=== PATIENT | male | born 2000 | race Two or more races ===

== ENCOUNTER 2020-01-15 15:21 | Emergency (ER) | payer OTHER, SELFPAY ==
[2020-01-15 16:24] VITALS: BP 141/82; PULSE 70; RESP 18; TEMP 36.1; O2SAT 98; BMI 27.3
--- NOTE | 2020-01-15 16:30 | ED.MEDCLEAR ---
HPI - Medical Clearance General Chief complaint: Medical Clearance <Evan Topete NP - Last Filed: 01/15/20 16:37> Stated complaint: MEDICAL CLEARANCE <Evan Topete NP - Last Filed: 01/15/20 16:37> Time Seen by Provider: 01/15/20 16:28 <Evan Topete NP - Last Filed: 01/15/20 16:37> Source: patient <Evan Topete NP - Last Filed: 01/15/20 16:37> Mode of arrival: ambulatory <Evan Topete NP - Last Filed: 01/15/20 16:37> Limitations: no limitations <Evan Topete NP - Last Filed: 01/15/20 16:37> History of Present Illness HPI Narrative: Otherwise healthy 19-year-old male presenting today seeking work note/excuse. States he has occasional upset stomach this morning he had a bout of upset stomach which led him to miss work and he is worried that he may have repercussions from work and came to emergency room for a work note. He offers no complaints at this time. No abdominal pain, nausea vomiting diarrhea. No recent travel or sick contacts. No URI symptoms. No COVID-19 symptoms. <Evan Topete NP - Last Filed: 01/15/20 16:37> complaint: medical clearance requested <Evan Topete NP - Last Filed: 01/15/20 16:37> Onset (ago): day(s) <Evan Topete NP - Last Filed: 01/15/20 16:37> Place: home <Evan Topete NP - Last Filed: 01/15/20 16:37> Associated Symptoms: denies other symptoms <Evan Topete NP - Last Filed: 01/15/20 16:37> Related Information Allergies/Adverse reactions: Allergies Allergy/AdvReac Type Severity Reaction Status Date / Time beeswax [BEESWAX] Allergy Unknown Itching Verified 01/15/20 16:31 shrimp [SHRIMP] Allergy Unknown SWOLLEN Verified 01/15/20 16:31 LIPS <Evan Topete NP - Last Filed: 01/15/20 16:37> Review of Systems Review of Systems: Yes all other systems are reviewed and are negative <Evan Topete NP - Last Filed: 01/15/20 16:37> [facility] Past Medical History Attestation statement: The following information was validated with the patient. <Evan MirandaKORTNEY amado - Last Filed: 01/15/20 16:37> Medical History: Medical History (Updated 01/16/20 @ 00:01 by Beau Sarkar) No known health problems <Evanjean claude Topete NP - Last Filed: 01/15/20 16:37> Surgical History: Surgical History (Updated 01/15/20 @ 16:27 by Jennifer De La Fuente) No history of previous surgery <Evanjean claude Topete NP - Last Filed: 01/15/20 16:37> Social History Social History: Social History Alcohol intake: current Alcohol intake frequency: a few times a week Smoking Status: Former smoker Smoked in Last 30 Days: No Use of substances other than those prescribed or required for medical reasons: No Advance Directives: No Advance Directives Information Provided: No <Evanjean claude Topete NP - Last Filed: 01/15/20 16:37> Physical Exam Vital Signs and I&O and Narrative: Vital Signs and I&O: Vital Signs Temp 97.0 F 01/15/20 16:24 Pulse 70 01/15/20 16:24 Resp 18 01/15/20 16:24 BP 141/82 H 01/15/20 16:24 Pulse Ox 98 01/15/20 16:24 Intake & Output 01/15/20 01/15/20 01/16/20 06:59 18:59 06:59 Weight 83.915 kg Body Mass Index 27.3 <Evan MirandaKORTNEY amado - Last Filed: 01/15/20 16:37> Vital Signs and I&O: Vital Signs Temp 97.0 F 01/15/20 16:24 Pulse 70 01/15/20 16:24 Resp 18 01/15/20 16:24 BP 141/82 H 01/15/20 16:24 Pulse Ox 98 01/15/20 16:24 Intake & Output 01/15/20 01/15/20 01/16/20 06:59 18:59 06:59 Weight 83.915 kg Body Mass Index 27.3 <Edvin Olivas DO - Last Filed: 01/16/20 02:01> Const: General: cooperative and healthy appearing; No acute distress or intoxicated appearing <[facility] Topete - Last Filed: 01/15/20 16:37> Nutritional Appearance: average body habitus <[facility] Topete [facility] Last Filed: 01/15/20 16:37> Orientation/consciousness: patient oriented x3 <[facility] Topete [facility] Last Filed: 01/15/20 16:37> HENMT: Head: Yes normal to inspection <[facility] Topete [facility] Last Filed: 01/15/20 16:37> Ears: hearing grossly normal bilaterally [facility] Last Filed: 01/15/20 16:37> Eyes: General: appearance normal, both eyes and all related structures <[facility] Topete, [facility] Last Filed: 01/15/20 16:37> Visual Araiza: normal visual araiza by confrontation <[facility] Topete [facility] Last Filed: 01/15/20 16:37> Neck: Neck: Yes normal visual inspection, No positive Brudzinski's sign, No positive Kernig's sign and No tender <[facility] Topete [facility] Last Filed: 01/15/20 16:37> Thyroid: Thyroid normal <[facility] Last Filed: 01/15/20 16:37> Chest: Chest palpation & inspection: normal inspection of the chest <[facility] Topete [facility] Last Filed: 01/15/20 16:37> Resp: Effort & Inspection: normal respiratory effort <[facility] Last Filed: 01/15/20 16:37> Cardio: Jugular venous distension: no JVD <[facility] Last Filed: 01/15/20 16:37> GI: Inspection: Yes normal to inspection <[facility] Last Filed: 01/15/20 16:37> Percussion: Yes normal to percussion <[facility] - Last Filed: 01/15/20 16:37> Auscultation: normal bowel sounds <[facility] Last Filed: 01/15/20 16:37> : General: Yes no CVA tenderness <[facility] - Last Filed: 01/15/20 16:37> Back/Spine/Pelvis: Back: no CVA tenderness <Evan Topete NP - Last Filed: 01/15/20 16:37> Skin: General skin exam: no rashes or lesions noted <Evan Topete NP - Last Filed: 01/15/20 16:37> Neuro: General: patient oriented x3 <Evan Topete NP - Last Filed: 01/15/20 16:37> Extrem: General: Yes normal to inspection <Evan Topete NP - Last Filed: 01/15/20 16:37> Course Course Hospital Course: Stable / po intake no complaints. <Evan Topete NP - Last Filed: 01/15/20 16:37> Discharge Plan Discharge Clinical Impression: Abdominal pain <Evan Topete NP - Last Filed: 01/15/20 16:37> Patient Disposition: Home, Self-Care <Evan Topete NP - Last Filed: 01/15/20 16:37> Instructions: Acute Nausea and Vomiting (ED) <Evan Topete NP - Last Filed: 01/15/20 16:37> Stand Alone Forms: Work/School Release <Evan Topete NP - Last Filed: 01/15/20 16:37> Interventions: ED Discharge Assessment Last Done: 01/15/20 17:57 <Evan Topete NP - Last Filed: 01/15/20 16:37> Discharge Date/Time: 01/15/20 17:57 <Evan Topete NP - Last Filed: 01/15/20 16:37>
== END 2020-01-15 17:57 | disposition home or self-care (01) ==
LOC: HO.ED 16:38
PROVIDERS: Emergency Provider Emergency Medicine; PCP Pediatrics
DX: Z02.2 Encounter for examination for admission to residential institution (principal); R10.9 Unspecified abdominal pain
CPT/HCPCS: 99282; 99283

== ENCOUNTER 2020-01-30 14:23 | Emergency (ER) | payer OTHER, SELFPAY ==
[2020-01-30 14:50] VITALS: BP 119/76; PULSE 75; RESP 18; TEMP 37.1; O2SAT 99; BMI 27.4
--- NOTE | 2020-01-30 15:04 | ED_ITS ---
HPI - Abdominal Pain General Chief Complaint: Abdominal Pain Stated Complaint: abd pain Time Seen by Provider: 01/30/20 15:04 Source: patient Mode of arrival: ambulatory Limitations: no limitations History of Present Illness HPI narrative: Patient is a 19-year-old male with no significant past medical history who presents complaining of on and off diarrhea, bloating, gas and constipation for years. also has some nausea intermittently with the diarrhea. States his mom has IBS and he thinks that is why he has as well. Denies any bloody or black stools, denies fevers. denies it occurring after he eats a spe cific food or spicy foods. Denies taking any antibiotics recently or regularly. Denies any foreign travel recently. MD elicited complaint: abdominal pain Onset (ago): year(s) Pain Consistency: intermittent Location: RLQ and LLQ Severity: mild Quality: cramping and dull Radiation: none Exacerbating factors: nothing Relieving factors: nothing Related Data Allergies Allergy/AdvReac Type Severity Reaction Status Date / Time shrimp [SHRIMP] Allergy Unknown SWOLLEN Verified 01/15/20 16:31 LIPS bee pollen [bee stings] Allergy Itching Verified 01/30/20 14:52 Review of Systems Review of Systems Constitutional: No Weight loss, No Fever, No Chills, No Night Sweats, No Fatigue, No Malaise ENT/Mouth: No Hearing loss, No Ear Pain, No Nasal Congestion, No Sinus Pain, No Hoarseness, No sore throat, No Rhinorrhea, No Swallowing Difficulty Eyes: No Eye Pain, No Swelling, No Redness, No Foreign Body, No Discharge, No Vision Changes Cardiovascular: No Chest Pain, No SOB, No Dyspnea on Exertion, No Orthopnea, No Edema, No Palpitations Respiratory: No Cough, No Sputum, No Wheezing, No Smoke Exposure, No Dyspnea Gastrointestinal: Genitourinary: no irregular bleeding, No Dysuria, No Urinary Frequency, No Hematuria, No Urinary Incontinence, No Urgency, No Flank Pain, No Urinary Flow Changes, No Hesitancy Musculoskeletal: No joint pain, No Myalgias, No Joint Swelling Skin: No Skin Lesions, No rash Neuro: No Weakness, No Numbness, No Paresthesias, No Loss of Consciousness, No Dizziness, No Headache Psych: No Anxiety/Panic, No Depression, No SI/HI/AH/VH, No Social Issues, Heme/Lymph: No Bruising, No Bleeding,No Lymphadenopathy Endocrine: No Polyuria, No Polydipsia, No Temperature Intolerance Yes all other systems are reviewed and are negative Physical Exam Vital Signs: Vital Signs: Vital Signs Temp Pulse Resp BP Pulse Ox 01/30/20 14:50 98.7 F 75 18 119/76 99 Body Mass Index 27.4 Const: General: cooperative, healthy appearing, comfortable, no acute distress and well developed Nutritional Appearance: average body habitus and well nourished Orientation/consciousness: patient oriented x3 Limitations: no limitations HENMT: Head: Yes normal to inspection Eyes: General: appearance normal, both eyes and all related structures Neck: Neck: Yes normal visual inspection and Yes full ROM Resp: Effort & Inspection: normal respiratory effort and able to speak in complete sentences Auscultation: clear to auscultation bilaterally Cardio: Rate: regular rate Rhythm: regular rhythm Heart sounds: no gallops, no murmurs and no rubs GI: Inspection: Yes normal to inspection Palpation (GI): Soft to palpation, nontender, no guarding and not rigid Auscultation: normal bowel sounds Skin: General skin exam: no rashes or lesions noted Neuro: General: patient oriented x3 Extrem: General: Yes normal to inspection Psych: Appearance: grossly normal and well kempt Course Course Course Narrative: Patient is a 19-year-old male with no significant past medical history who comes in complaining of years of alternating nausea diarrhea and constipation, denies any concerning symptoms acutely. Vital signs are stable. patient believes he has IBS as his mother does but has never been formally ev aluated. agreed since he is very healthy and stable to GI follow-up as outpatient. No labs or imaging are necessary today as he is not acutely ill. MDM - Abdominal Pain MDM Narrative Medical decision making narrative: Patient has no acute concerning symptoms, refer to GI as outpatient. Patient understands and agrees with plan. Medical Records Attestation: I reviewed the patient's medical records. Discharge Plan Discharge Clinical Impression: Abdominal pain Qualifiers: Abdominal location: lower abdomen, unspecified Qualified Code(s): R10.30 - Lower abdominal pain, unspecified Patient Disposition: Home, Self-Care Referrals: Alex Tripp MD [Physician] - 2 days PMF Past Medical History Attestation statement: The following information was validated with the patient. Source: nursing notes reviewed Medical History Asthma No known health problems Surgical History No history of previous surgery Family History Family History (Updated 01/30/20 @ 15:08 by ROLO Millard) Mother IBS (irritable bowel syndrome) Social History Social History Alcohol intake: unknown Smoking Status: Unknown if ever smoked Use of substances other than those prescribed or required for medical reasons: No Advance Directives: No Advance Directives Information Provided: Yes
== END 2020-01-30 15:35 | disposition home or self-care (01) ==
PROVIDERS: Emergency Provider Emergency Medicine; PCP Pediatrics
DX: R10.30 Lower abdominal pain, unspecified (principal); R19.7 Diarrhea, unspecified
CPT/HCPCS: 99283; 99284

== ENCOUNTER 2020-09-21 06:16 | Emergency (ER) | payer OTHER, SELFPAY ==
--- NOTE | ~2020-09-21 | CT_ITS ---
EXAMINATION: CT ABDOMEN AND PELVIS WITH CONTRAST CLINICAL INFORMATION: Abdominal pain. Left lower quadrant diarrhea. COMPARISON: None TECHNIQUE: Multidetector volumetric images were obtained from the superior aspect of the liver through the pubic symphysis following administration 85 mL of Omnipaque 350 intravenous contrast. Sagittal and coronal reformatted images were obtained on the technologist's workstation. Oral contrast: No This CT examination was performed using dose optimization techniques as appropriate, variously including the following: *Automated exposure control *Adjustment of mA and/or kV according to patient size (this includes techniques or standardized protocols for targeted exams where dose is matched to indication/reason for exam; i.e. extremities or head) *Use of iterative reconstruction technique DLP: 606 mGy-cm FINDINGS: LUNG BASES: The visualized lung bases are unremarkable. LIVER, GALLBLADDER, AND BILIARY TREE: The liver is normal in size, shape, and attenuation. No focal hepatic lesion or biliary ductal dilatation is present. The gallbladder is unremarkable with no evidence of radiopaque gallstones, gallbladder wall thickening, or obvious pericholecystic inflammatory changes. PANCREAS: Unremarkable. SPLEEN: Unremarkable. ADRENAL GLANDS: Unremarkable. KIDNEYS AND URETERS: The kidneys are normal in size, shape, and attenuation. No hydronephrosis, hydroureter, or calculi seen. No perinephric stranding. BLADDER: The bladder is distended and appears unremarkable. GASTROINTESTINAL TRACT: The small and large bowel are unremarkable. The appendix is unremarkable. ABDOMINAL WALL: No significant hernia is appreciated. LYMPH NODES: Normal. VASCULAR: Unremarkable. PELVIC VISCERA: There is no free fluid or free air. OSSEOUS STRUCTURES: Unremarkable. CT/CT abdomen pelvis w con IMPRESSION: No acute intra-abdominal process seen. Distended urinary bladder.
[2020-09-21 06:54] VITALS: BP 117/57; PULSE 64; RESP 15; TEMP 36.6; O2SAT 98; BMI 27.3
--- NOTE | 2020-09-21 07:01 | ED.ABDPAIN ---
HPI - Abdominal Pain General Chief Complaint: Abdominal Pain Stated Complaint: Abd pain Time Seen by Provider: 09/21/20 07:00 Source: patient Mode of arrival: ambulatory Limitations: no limitations History of Present Illness HPI narrative: 20 yo male otherwise healthy with 2 weeks of lower abdominal pain and diarrhea fam hx of IBS MD elicited complaint: abdominal pain Pertinent past history: constipation Onset (ago): week(s) (2) Pain Consistency: intermittent Location: LLQ Severity: moderate Quality: cramping Migration to: no migration Exacerbating factors: nothing Relieving factors: nothing Associated symptoms: denies other symptoms Related Data Previous Rx's Medication Instructions Recorded dicyclomine 20 mg PO TID PRN #30 tab 09/21/20 Allergies Allergy/AdvReac Type Severity Reaction Status Date / Time shrimp [SHRIMP] Allergy Unknown SWOLLEN Verified 09/21/20 06:58 LIPS bee pollen [bee stings] Allergy Itching Verified 09/21/20 06:58 Review of Systems Review of Systems Constitutional : No Weight loss, No Fever, No Chills ENT/Mouth : No sore throat, No Rhinorrhea Eyes: No Swelling, No Redness Cardiovascular : No Chest Pain, No SOB, NoEdema Respiratory : No Cough, No Sputum, No Wheezing Gastrointestinal : no Nausea, no Vomiting, positive Diarrhea, positive abdominal Pain, No Hematochezia, No Melena Genitourinary : No Dysuria, No Urinary Frequency, No Hematuria, No Urgency Musculoskeletal : No joint pain, No Myalgias, No Joint Swelling Skin : No Skin Lesions, No rash Neuro : No Weakness, No Numbness, No Dizziness, No Headache Psych : No Anxiety/Panic, No Depression Heme/Lymph: No Bruising, No Lymphadenopathy Endocrine : No Polyuria, No Polydipsia All other systems reviewed and are negative. Physical Exam Vital Signs: Vital Signs: Last Vital Signs Temp 98 F 09/21/20 06:54 Pulse 64 09/21/20 06:54 Resp 15 09/21/20 06:54 BP 117/57 L 09/21/20 06:54 Pulse Ox 98 09/21/20 06:54 Body Mass Index 27.3 Appearance: Alert. Oriented X3. No acute distress. Eyes: Pupils equal, round and reactive to light. ENT: Pharynx normal. Neck: Normal inspection. Neck supple. CVS: Normal heart rate and rhythm. Pulses normal. Respiratory: No respiratory distress. Breath sounds normal. Abdomen: Soft and moderate LLQ ttp no rebound or guarding. Skin: Skin warm and dry. Normal skin color. Normal skin turgor. Extremities: No lower extremity edema. No calf ttp Neuro: Oriented X 3. No motor deficit. No sensory deficit. Course Course Course Narrative: no issues urinating at this time MDM - Abdominal Pain MDM Narrative Medical decision making narrative: 20 yo male with no sig PMH here with LLQ pain x 2 weeks with diarrhea - no recent antibiotic use, at this time will need labs, CT scan for diverticulitis/colitis, dispo per results and findings. Differential Diagnosis Differential diagnosis: Likely abdominal pain and diverticulitis Lab Data Result diagrams: 09/21/20 07:24 09/21/20 07:24 Labs: Lab Results 09/21/20 09/21/20 09/21/20 Range/Units 07:24 07:24 07:24 WBC 5.9 (4.8-10.8) X10*3/uL RBC 4.82 (4.60-5.80) X10*6/uL Hgb 14.3 (14.0-18.0) g/dl Hct 43.5 (42-52) % MCV 90.2 (80-98) fL MCH 29.7 (27.0-33.0) pg MCHC 32.9 (31.0-36.0) g/dl RDW 13.2 (11.0-16.0) % Plt Count 226 (160-400) X10*3/uL MPV 10.6 (9.4-12.4) fL Immature Gran % (Auto) 0.5 H (0.0-0.4) % Neut % (Auto) 60.2 (45-73) % Lymph % (Auto) 29.8 (20-40) % [place] % (Auto) 7.5 (2-11) % Eos % (Auto) 1.7 (0-4) % Baso % (Auto) 0.3 (0-2) % Lymph # (Auto) 1.8 (1.2-4.9) X10*3/uL [place] # (Auto) 0.4 (0.1-1.2) X10*3/uL Eos # (Auto) 0.1 (0.0-0.4) X10*3/uL Baso # (Auto) 0.0 (0.0-0.2) X10*3/uL Abs Immat Gran (auto) 0.03 (0.00-0.03) X10*3/uL Absolute Neuts (auto) 3.6 (2.0-8.3) X10*3/uL Absolute Nucleated RBC 0.000 (0.0-0.012) X10*3/uL Nucleated RBC % (auto) 0.0 (0.0-0.2) /100WBC Hold Blue Top SEE NOTE Sodium 139 (135-145) mmol/L Potassium 4.6 (3.3-5.1) mmol/L Chloride 105 (96-108) mmol/L Carbon Dioxide 29 (22-29) mmol/L Anion Gap 10 L (12-20) BUN 12 (9-16) mg/dL Creatinine 0.90 (0.5-1.4) mg/dL Estim Creat Clear Calc 126.6 Estimated GFR > 60 Random Glucose 98 (60-115) mg/dL Calcium 9.7 (8.4-10.2) mg/dL Magnesium (1.6-2.6) mg/dL Total Bilirubin (0.0-1.0) mg/dL Direct Bilirubin (0.0-0.5) mg/dL AST (5-37) U/L ALT (0-40) U/L Alkaline Phosphatase (39-117) U/L Total Protein (6.5-8.0) g/dL Albumin (3.5-5.0) g/dL Lipase (8-78) U/L 09/21/20 Range/Units 07:24 WBC (4.8-10.8) X10*3/uL RBC (4.60-5.80) X10*6/uL Hgb (14.0-18.0) g/dl Hct (42-52) % MCV (80-98) fL MCH (27.0-33.0) pg MCHC (31.0-36.0) g/dl RDW (11.0-16.0) % Plt Count (160-400) X10*3/uL MPV (9.4-12.4) fL Immature Gran % (Auto) (0.0-0.4) % Neut % (Auto) (45-73) % Lymph % (Auto) (20-40) % [place] % (Auto) (2-11) % Eos % (Auto) (0-4) % Baso % (Auto) (0-2) % Lymph # (Auto) (1.2-4.9) X10*3/uL [place] # (Auto) (0.1-1.2) X10*3/uL Eos # (Auto) (0.0-0.4) X10*3/uL Baso # (Auto) (0.0-0.2) X10*3/uL Abs Immat Gran (auto) (0.00-0.03) X10*3/uL Absolute Neuts (auto) (2.0-8.3) X10*3/uL Absolute Nucleated RBC (0.0-0.012) X10*3/uL Nucleated RBC % (auto) (0.0-0.2) /100WBC Hold Blue Top Sodium (135-145) mmol/L Potassium (3.3-5.1) mmol/L Chloride (96-108) mmol/L Carbon Dioxide (22-29) mmol/L Anion Gap (12-20) BUN (9-16) mg/dL Creatinine (0.5-1.4) mg/dL Estim Creat Clear Calc Estimated GFR Random Glucose (60-115) mg/dL Calcium (8.4-10.2) mg/dL Magnesium 2.1 (1.6-2.6) mg/dL Total Bilirubin 1.3 H (0.0-1.0) mg/dL Direct Bilirubin 0.5 (0.0-0.5) mg/dL AST 22 (5-37) U/L ALT 25 (0-40) U/L Alkaline Phosphatase 78 (39-117) U/L Total Protein 7.4 (6.5-8.0) g/dL Albumin 4.5 (3.5-5.0) g/dL Lipase 28 (8-78) U/L Discharge Plan Discharge Clinical Impression: Abdominal pain Patient Disposition: Home, Self-Care Instructions: Irritable Bowel Syndrome (ED), Abdominal Pain (ED) Additional Instructions: return to ED for any worsening symptoms or concerns Prescriptions: New dicyclomine 20 mg tablet 20 mg PO TID PRN (Reason: abdominal discomfort) Qty: 30 RF: 0 Referrals: Garrison Rod [Physician] - 1 week Stand Alone Forms: Work/School Release [facility] Past Medical History Attestation statement: The following information was validated with the patient. Medical History Asthma No known health problems Surgical History No history of previous surgery Family History Family History (Updated 01/30/20 @ 15:08 by Selena Choi PA-C) Mother IBS (irritable bowel syndrome) Social History Social History (Updated 09/21/20 @ 07:19 by Mya Suh DO) Alcohol intake: unknown Patient Tobacco Use Status: Never used Tobacco Advance Directives: No Advance Directives Information Provided: No
[2020-09-21] MEDS: 0.9 % Sodium Chloride 1,000 ML 999 ML IVCONT (07:25)
[2020-09-21 07:29] LABS: MANUAL DIFF FLAG NO
[2020-09-21 07:31] LABS: Basophils Percent Auto 0.3 % (0-2); Eosinophils Absolute Auto 0.1 X10*3/uL (0.0-0.4); Eosinophils Percent Auto 1.7 % (0-4); Hematocrit 43.5 % (42-52); Hemoglobin 14.3 g/dl (14.0-18.0); Imm Gran Abs Auto 0.03 X10*3/uL (0.00-0.03); Imm Gran Pct Auto 0.5 % (0.0-0.4); Lymphocytes Absolute Auto 1.8 X10*3/uL (1.2-4.9); Lymphocytes Percent Auto 29.8 % (20-40); Mean Corpuscular HGB Conc 32.9 g/dl (31.0-36.0); Mean Corpuscular Hemoglobin 29.7 pg (27.0-33.0); Mean Corpuscular Volume 90.2 fL (80-98); Mean Platelet Volume 10.6 fL (9.4-12.4); Monocytes Absolute Auto 0.4 X10*3/uL (0.1-1.2); Monocytes Percent Auto 7.5 % (2-11); Neutrophils Absolute Auto 3.6 X10*3/uL (2.0-8.3); Neutrophils Percent Auto 60.2 % (45-73); Platelet Count 226 X10*3/uL (160-400); Red Blood Count 4.82 X10*6/uL (4.60-5.80); Red Cell Distribution Width 13.2 % (11.0-16.0); White Blood Count 5.9 X10*3/uL (4.8-10.8)
[2020-09-21 08:17] LABS: Anion Gap 10 (12-20); Blood Urea Nitrogen 12 mg/dL (9-16); Calcium 9.7 mg/dL (8.4-10.2); Carbon Dioxide 29 mmol/L (22-29); Chloride 105 mmol/L (96-108); Creatinine Clr Calc Pharmacy 126.6; Estimated Glomerular Filt Rate > 60; Glucose Random 98 mg/dL (60-115); Potassium 4.6 mmol/L (3.3-5.1); Sodium 139 mmol/L (135-145)
[2020-09-21 08:21] LABS: Alanine Aminotransferase 25 U/L (0-40); Albumin Level 4.5 g/dL (3.5-5.0); Alkaline Phosphatase 78 U/L (39-117); Aspartate Amino Transferase 22 U/L (5-37); Bilirubin Direct 0.5 mg/dL (0.0-0.5); Bilirubin Total 1.3 mg/dL (0.0-1.0); Lipase 28 U/L (8-78); Magnesium 2.1 mg/dL (1.6-2.6); Total Protein 7.4 g/dL (6.5-8.0)
[2020-09-21] MEDS: iohexoL 350 MG/ML 100 ML INFUS..BTL IV (08:59)
== END 2020-09-21 09:49 | disposition home or self-care (01) ==
PROVIDERS: Emergency Provider Emergency Medicine
DX: R10.30 Lower abdominal pain, unspecified (principal); K58.0 Irritable bowel syndrome with diarrhea
CPT/HCPCS: 36415; 74177; 80048; 80076; 83690; 83735; 85025; 96360; 99283; 99284; Q9967

== ENCOUNTER 2020-09-22 06:23 | Emergency (ER) | payer OTHER, SELFPAY | END 2020-09-22 07:51 | disposition left against medical advice (07) | PROVIDERS: Emergency Provider Emergency Medicine | DX: R10.9 Unspecified abdominal pain (principal) ==

== ENCOUNTER → 2020-12-14 10:56 | Outpatient (BNVA) | payer OTHER, SELFPAY | PROVIDERS: Visit Provider Physician Assistant Medical | DX: S51.811A Laceration without foreign body of right forearm, initial encounter (principal); W26.9XXA Contact with unspecified sharp object(s), initial encounter; Z23 Encounter for immunization | CPT/HCPCS: 73090; 90715; 99204 ==

== ENCOUNTER 2021-01-16 11:50 | Outpatient (REF) | payer OTHER, SELFPAY | END 2021-01-16 11:51 | disposition home or self-care (01) | LOC: HO.LAB 11:50 | PROVIDERS: Visit Provider Internal Medicine | DX: Z20.822 Contact with and (suspected) exposure to COVID-19 (principal) | CPT/HCPCS: U0003; U0005 ==

== ENCOUNTER 2021-03-08 17:50 | Emergency (ER) | payer OTHER, SELFPAY ==
--- NOTE | ~2021-03-08 | US_ITS ---
EXAMINATION: US SCROTUM CLINICAL INFORMATION: Left-sided testicular pain. COMPARISON: None TECHNIQUE: A sonogram of the scrotum was performed assessing jensen-scale appearance and color Doppler flow. Spectral Doppler analysis of the arterial and venous flow were performed in the testes bilaterally. FINDINGS: RIGHT: Right testicle measures 4.4 x 2.0 x 3.1 cm, volume 14 mL. No focal testicular parenchymal lesions are visualized. Spectral Doppler analysis of the arterial and venous flow is normal in the right testis. Right epididymal head is normal in size. A small 3 x 2 x 2 mm cyst is noted in the head of the epididymis. No right hydrocele or varicocele is seen. Right epididymal Doppler flow is normal. LEFT: Left testicle measures 4.2 x 1.7 x 2.6 cm, volume 10.0 mL. No focal testicular parenchymal lesions are visualized. Spectral Doppler analysis of the arterial and venous flow is normal in the left testis. Left epididymal head is normal in size. 8 8 x 6 x 7 mm cyst is noted in the head of the epididymis No left hydrocele or varicocele is seen. Left epididymal Doppler flow is normal. US/US scrotum doppler IMPRESSION: Negative exam aside from the presence of epididymal head cysts.
--- NOTE | ~2021-03-08 | US_ITS ---
EXAMINATION: US SCROTUM CLINICAL INFORMATION: Left-sided testicular pain. COMPARISON: None TECHNIQUE: A sonogram of the scrotum was performed assessing jensen-scale appearance and color Doppler flow. Spectral Doppler analysis of the arterial and venous flow were performed in the testes bilaterally. FINDINGS: RIGHT: Right testicle measures 4.4 x 2.0 x 3.1 cm, volume 14 mL. No focal testicular parenchymal lesions are visualized. Spectral Doppler analysis of the arterial and venous flow is normal in the right testis. Right epididymal head is normal in size. A small 3 x 2 x 2 mm cyst is noted in the head of the epididymis. No right hydrocele or varicocele is seen. Right epididymal Doppler flow is normal. LEFT: Left testicle measures 4.2 x 1.7 x 2.6 cm, volume 10.0 mL. No focal testicular parenchymal lesions are visualized. Spectral Doppler analysis of the arterial and venous flow is normal in the left testis. Left epididymal head is normal in size. 8 8 x 6 x 7 mm cyst is noted in the head of the epididymis No left hydrocele or varicocele is seen. Left epididymal Doppler flow is normal. US/US scrotum IMPRESSION: Negative exam aside from the presence of epididymal head cysts.
[2021-03-08 17:59] VITALS: BP 109/77; PULSE 86; RESP 18; TEMP 36.1; O2SAT 98; BMI 27.8
--- NOTE | 2021-03-08 19:38 | ED.MALEGU ---
HPI - Male Genitourinary General Chief complaint: Urogenital-Male Stated complaint: testicle pain Time Seen by Provider: 03/08/21 18:06 Source: patient Mode of arrival: ambulatory Limitations: no limitations History of Present Illness HPI Narrative: 20-year-old male presenting with left-sided testicle pain that started about 3 hours ago. He reports a dull aching and fullness kind of pain that comes and goes. It was sharp at one point which made his left lower abdomen cramp up. He has had no nausea, vomiting, diarrhea, urethral discharge, dysuria, hematuria. He reports a mild aching pain in the left side right now. No concern for STIs, he is in a committed relationship with no new sexual partners. Last had intercourse 2 days ago with no pain. Denies recent trauma or injury. He is worried about testicular cancer. MD Complaint: testicle pain Onset (ago): hour(s) (3) Duration: intermittent Location: left testicle Radiation: abdomen Severity: moderate Quality: aching, sharp and dull Relieving factors: none Exacerbating factors: none Associated symptoms: Reports denies other symptoms Related Data Sexually active: Yes Previous Rx's Medication Instructions Recorded dicyclomine 20 mg tablet 20 mg PO TID PRN #30 tab 09/21/20 Allergies Allergy/AdvReac Type Severity Reaction Status Date / Time shrimp [SHRIMP] Allergy Unknown SWOLLEN Verified 09/21/20 06:58 LIPS bee pollen [bee stings] Allergy Itching Verified 09/21/20 06:58 Review of Systems Review of Systems: Constitutional: No Fever, No Chills Cardiovascular: No Chest Pain, No SOB Gastrointestinal: No Nausea, No Vomiting, No Diarrhea, + abdominal Pain, No Hematochezia, No Melena Genitourinary: No Dysuria, No Urinary Frequency, No Hematuria, +testicular pain, No urethral discharge Musculoskeletal: No joint pain, No Myalgias Skin: No Skin Lesions, No rash Neuro: No Weakness, No Numbness Psych: + Anxiety/Panic, No Depression Heme/Lymph: No Bruising, No Lymphadenopathy PMFSH Past Medical History Medical History Asthma No known health problems Surgical History No history of previous surgery Family History Family History (Updated 01/30/20 @ 15:08 by Selena Choi PA-C) Mother IBS (irritable bowel syndrome) Social History Social History (Updated 09/21/20 @ 07:19 by Mya Suh DO) Alcohol intake: unknown Patient Tobacco Use Status: Never used Tobacco Advance Directives: No Advance Directives Information Provided: No Physical Exam Vital Signs: Vital Signs: Last Vital Signs Temp 97 F 03/08/21 17:59 Pulse 86 03/08/21 17:59 Resp 18 03/08/21 17:59 BP 109/77 03/08/21 17:59 Pulse Ox 98 03/08/21 17:59 Body Mass Index 27.8 Appearance: Alert. Oriented X3. No acute distress. HEENT: normal inspection CVS: Normal heart rate and rhythm. Pulses normal. Respiratory: No respiratory distress. Skin: Skin warm and dry. Normal skin color. Normal skin turgor. No rashes. Abd: Soft nontender nondistended, normal bowel sounds x4. Genitalia: Normal external inspection, penis is uncircumcised, easily retractable foreskin no urethral discharge, testes are fully distended with nontender testicles bilaterally. No palpable masses. No skin changes. No swelling. Extremities: atraumatic x4, normal ROM Neuro: Oriented X 3. Grossly normal, nonfocal Course Course Course Narrative: 20-year-old male presents with acute onset of intermittent left testicular pain that started about 3 hours ago. It is now gone. He has no urinary symptoms or concern for STI. Testicular ultrasound ordered and is unremarkable. His urinalysis is negative for infection. He is declining concern for STI and would like to wait results prior to getting empiric treatment. At this time patient is stable for discharge home with plan to come back to the ER if severe pain returns. Patient agrees with plan. MDM - Male Genitourinary Lab Data Labs: Lab Results 03/08/21 Range/Units 19:55 Urine Color YELLOW Urine Appearance CLEAR Urine pH 6.0 (5.0-8.0) Ur Specific [place] 1.025 (1.005-1.025) Urine Protein NEG (NEG-TRACE) MG/DL Urine Glucose (UA) NEG (NEG) MG/DL Urine Ketones NEG (NEG) MG/DL Urine Blood NEG (NEG) Urine Nitrite NEG (NEG) Ur Leukocyte Esterase NEG (NEG) Urine RBC 0-2 (0) /HPF Urine WBC 0-2 (0-4) /HPF Ur Squamous Epith Cells NONE /LPF Urine Bacteria NONE /LPF Critical Care Time Critical Care Time Critical Care Time: No Discharge Plan Discharge Clinical Impression: Testicle pain Patient Disposition: Home, Self-Care Instructions: Testicle Pain (ED) Additional Instructions: Your testicular ultrasound did not show any causes of your pain. Your urine test was normal. Your tested for gonorrhea and chlamydia, if either of these are positive we will call you. If you have returning severe pain come back to the ER for further evaluation. Prescriptions: No Action dicyclomine 20 mg tablet 20 mg PO TID PRN (Reason: abdominal discomfort) Qty: 30 RF: 0 Interventions: ED Discharge Assessment Last Done: 03/08/21 20:57 Discharge Date/Time: 03/08/21 20:58
[2021-03-08 20:11] LABS: Appearance Urine CLEAR; Color Urine YELLOW; Glucose Urine UA NEG (NEG); Leukocyte Esterase Urine NEG (NEG); Nitrite Urine NEG (NEG); Specific Gravity - Urine 1.025 (1.005-1.025); Urine Blood NEG (NEG); Urine Ketones NEG (NEG); Urine Protein NEG (NEG-TRACE)
[2021-03-08 20:39] LABS: RBC Urine 0-2 /HPF (0); WBC Urine 0-2 /HPF (0-4)
[2021-03-09 03:01] LABS: CT PCR NOT DETECTED (Not Detect.); NG PCR NOT DETECTED (Not Detect.)
== END 2021-03-08 20:58 | disposition home or self-care (01) ==
PROVIDERS: Physician Assistant; Emergency Provider Emergency Medicine
DX: N50.812 Left testicular pain (principal); Z79.899 Other long term (current) drug therapy; Z20.822 Contact with and (suspected) exposure to COVID-19
CPT/HCPCS: 76870; 81001; 87491; 87591; 93975; 99283; 99284

== ENCOUNTER 2021-03-31 16:07 | Emergency (ER) | payer OTHER, SELFPAY ==
[2021-03-31 16:12] VITALS: BP 149/93; PULSE 95; RESP 18; TEMP 36.3; O2SAT 98; BMI 26.6
== END 2021-03-31 19:49 | disposition left against medical advice (07) ==
PROVIDERS: Emergency Provider Emergency Medicine
DX: N44.00 Torsion of testis, unspecified (principal); N50.89 Other specified disorders of the male genital organs
CPT/HCPCS: 99281

== ENCOUNTER 2021-08-18 20:09 | Emergency (ER) | payer OTHER, SELFPAY ==
--- NOTE | 2021-08-18 22:36 | PC.NURSE ---
patient called to triage x 3 no answer
== END 2021-08-18 22:53 | disposition left against medical advice (07) ==
PROVIDERS: Emergency Provider Emergency Medicine
DX: Z04.1 Encounter for examination and observation following transport accident (principal); M54.2 Cervicalgia

== ENCOUNTER 2021-08-19 14:20 | Emergency (ER) | payer SELFPAY ==
[2021-08-19 15:07] VITALS: BP 109/69; PULSE 69; RESP 18; TEMP 36.8; O2SAT 98; BMI 27.8
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
[2021-08-19] MEDS: Ketorolac Tromethamine 60 MG/2 ML VIAL IM (18:04)
== END 2021-08-19 19:07 | disposition home or self-care (01) ==
PROVIDERS: Emergency Provider Internal Medicine
DX: S16.1XXA Strain of muscle, fascia and tendon at neck level, initial encounter (principal); J45.909 Unspecified asthma, uncomplicated; V89.2XXA Person injured in unspecified motor-vehicle accident, traffic, initial encounter; Y93.9 Activity, unspecified; Y92.410 Unspecified street and highway as the place of occurrence of the external cause; Y99.9 Unspecified external cause status
CPT/HCPCS: 96372; 99283; 99284; J1885

== ENCOUNTER 2021-11-19 11:22 | Emergency (ER) | payer OTHER, SELFPAY ==
[2021-11-19 11:48] VITALS: BP 122/75; PULSE 82; RESP 18; TEMP 37.2; O2SAT 100; BMI 27.3
--- NOTE | 2021-11-19 11:48 | ECG_ITS ---
Test Reason : palpatations Blood Pressure : / mmHG Vent. Rate : 079 BPM Atrial Rate : 079 BPM P-R Int : 144 ms QRS Dur : 090 ms QT Int : 362 ms P-R-T Axes : 063 057 018 degrees QTc Int : 415 ms Normal sinus rhythm with sinus arrhythmia Normal ECG No previous ECGs available Referred By: Generic ED Physician Electronically Signed By:BRITTANY ENGLAND
[2021-11-19 12:12] LABS: Basophils Percent Auto 0.5 % (0-2); Eosinophils Absolute Auto 0.1 X10*3/uL (0.0-0.4); Hematocrit 45.8 % (42.0-52.0); Hemoglobin 15.2 g/dl (14.0-18.0); Imm Gran Abs Auto 0.03 X10*3/uL (0.00-0.03); Imm Gran Pct Auto 0.5 % (0.0-0.4); Lymphocytes Absolute Auto 1.3 X10*3/uL (1.2-4.9); Lymphocytes Percent Auto 20.9 % (20-40); MANUAL DIFF FLAG NO; Mean Corpuscular HGB Conc 33.2 g/dl (31.0-36.0); Mean Corpuscular Hemoglobin 29.5 pg (27.0-33.0); Mean Corpuscular Volume 88.8 fL (80.0-98.0); Mean Platelet Volume 10.4 fL (9.4-12.4); Monocytes Absolute Auto 0.4 X10*3/uL (0.1-1.2); Monocytes Percent Auto 6.6 % (2-11); Neutrophils Absolute Auto 4.4 x10*3/uL (2.0-8.3); Neutrophils Percent Auto 70.5 % (45-73); Platelet Count 251 X10*3/uL (160-400); Red Blood Count 5.16 X10*6/uL (4.60-5.80); Red Cell Distribution Width 13.6 % (11.0-16.0); White Blood Count 6.2 X10*3/uL (4.8-10.8)
[2021-11-19 12:31] LABS: Troponin-I High Sensitivity < 3.5 ng/L (<3.5-35.0)
[2021-11-19 12:33] LABS: Alanine Aminotransferase 30 U/L (0-40); Alkaline Phosphatase 76 U/L (39-117); Anion Gap 13 (12-20); Aspartate Amino Transferase 21 U/L (5-37); Bilirubin Total 2.4 mg/dL (0.0-1.0); Blood Urea Nitrogen 10 mg/dL (9-16); Calcium 10.4 mg/dL (8.4-10.2); Carbon Dioxide 28 mmol/L (22-29); Chloride 105 mmol/L (96-108); Creatinine Clr Calc Pharmacy 117.7; Estimated Glomerular Filt Rate > 60; Glucose Random 98 mg/dL (60-115); Potassium 5.3 mmol/L (3.3-5.1); Sodium 141 mmol/L (135-145); Total Protein 8.3 g/dL (6.5-8.0)
[2021-11-19 17:40] VITALS: BP 126/63; PULSE 81; RESP 12; TEMP 37; O2SAT 99
[2021-11-19] MEDS: 0.9 % Sodium Chloride 1,000 ML 999 ML IV (17:53)
--- NOTE | 2021-11-19 18:18 | ED.ARRPALP ---
HPI - Arrhythmia/Palpitations General Chief Complaint: Arrhythmia/Palpitations Stated Complaint: heart palpitations Time Seen by Provider: 11/19/21 17:22 Source: patient Mode of arrival: ambulatory History of Present Illness HPI narrative: 21-year-old male who presents with intermittent palpitations after smoking marijuana and denies any associated fever, chills, [id number] supplements, but states he does have asthma and uses his albuterol inhaler. He denies any associated chest pain or headache or dizziness and is otherwise been in good health. Related Data Previous Rx's Medication Instructions Recorded dicyclomine 20 mg tablet 20 mg PO TID PRN abdominal 09/21/20 discomfort #30 tabs cyclobenzaprine 10 mg tablet 10 mg PO BID PRN muscle spasm 7 08/19/21 days #14 tabs naproxen 500 mg tablet 500 mg PO BID PRN pain #14 tabs 08/19/21 Allergies Allergy/AdvReac Type Severity Reaction Status Date / Time shrimp [SHRIMP] Allergy Unknown SWOLLEN Verified 08/19/21 15:06 LIPS bee pollen [bee stings] Allergy Itching Verified 08/19/21 15:06 Review of Systems Review of Systems: Pertinent positives and negatives as stated in HPI and 10 point review of systems is otherwise negative. [facility] Past Medical History Source: nursing notes reviewed Medical History Asthma No known health problems Surgical History No history of previous surgery Family History Family History Mother IBS (irritable bowel syndrome) Social History Social History Alcohol intake: unknown Patient Tobacco Use Status: Never used Tobacco Advance Directives: No Advance Directives Information Provided: No Physical Exam Vital Signs: Vital Signs: Last Vital Signs Temp 98.6 F 11/19/21 17:40 Pulse 81 11/19/21 17:40 Resp 12 11/19/21 17:40 BP 126/63 11/19/21 17:40 Pulse Ox 99 11/19/21 17:40 O2 Del Method 11/19/21 17:40 BMI result Body Mass Index 27.3 VITAL SIGNS: Reviewed. GENERAL: Well developed, well nourished, in no acute distress. HEAD: Normocephalic/atraumatic EYES: PERRLA, EOMI EARS: Ext canals without abnormality OROPHARYNX: no oral lesions noted, posterior pharynx clear LUNGS: Normal breath sounds. No adventitious sounds or accessory muscle use. SpO2<99> CARDIOVASCULAR: Regular rate and rhythm without noted murmurs ABDOMEN: Soft, non-tender, non-distended with bowel sounds. MUSCULOSKELETAL: No tenderness, deformities, or effusions noted on gross inspection. EXTREMITIES: No cyanosis, clubbing or edema. SKIN: Inspection of the skin reveals no rashes NEUROLOGIC: Alert and oriented x 4. Strength and sensation to light touch were grossly intact x 4. Course Course Course Narrative: 21-year-old male with history and clinical presentation most consistent with likely anxiety reaction, however on review of lab work which was ordered patient is noted to have a mild bump in potassium as well as calcium and on obtaining TSH values there are no acute findings. Will proceed with obtaining magnesium level and giving 1 L of IV fluids. Review of all investigations after patient received IV fluids completely normalize and suspect a component of dehydration compounded by patient's alcohol use yesterday. He is otherwise looking healthy and well and was directed to follow-up with his primary care provider. MDM - Arrhythmia/Palpitations Lab Data Result diagrams: 11/19/21 12:06 11/19/21 19:34 Labs: Lab Results 11/19/21 11/19/21 11/19/21 Range/Units 12:06 12:06 12:06 WBC 6.2 (4.8-10.8) X10*3/uL RBC 5.16 (4.60-5.80) X10*6/uL Hgb 15.2 (14.0-18.0) g/dl Hct 45.8 (42.0-52.0) % MCV 88.8 (80.0-98.0) fL MCH 29.5 (27.0-33.0) pg MCHC 33.2 (31.0-36.0) g/dl RDW 13.6 (11.0-16.0) % Plt Count 251 (160-400) X10*3/uL MPV 10.4 (9.4-12.4) fL Immature Gran % (Auto) 0.5 H (0.0-0.4) % Neut % (Auto) 70.5 (45-73) % Lymph % (Auto) 20.9 (20-40) % [place] % (Auto) 6.6 (2-11) % Eos % (Auto) 1.0 (0-4) % Baso % (Auto) 0.5 (0-2) % Lymph # (Auto) 1.3 (1.2-4.9) X10*3/uL [place] # (Auto) 0.4 (0.1-1.2) X10*3/uL Eos # (Auto) 0.1 (0.0-0.4) X10*3/uL Baso # (Auto) 0.0 (0.0-0.2) X10*3/uL Abs Immat Gran (auto) 0.03 (0.00-0.03) X10*3/uL Absolute Neuts (auto) 4.4 (2.0-8.3) x10*3/uL Absolute Nucleated RBC 0.000 (0.0-0.012) X10*3/uL Nucleated RBC % (auto) 0.0 (0.0-0.2) /100WBC Sodium 141 (135-145) mmol/L Potassium 5.3 H (3.3-5.1) mmol/L Chloride 105 (96-108) mmol/L Carbon Dioxide 28 (22-29) mmol/L Anion Gap 13 (12-20) BUN 10 (9-16) mg/dL Creatinine 0.96 (0.5-1.4) mg/dL Estim Creat Clear Calc 117.7 Estimated GFR > 60 Random Glucose 98 (60-115) mg/dL Calcium 10.4 H D (8.4-10.2) mg/dL Magnesium 1.9 (1.6-2.6) mg/dL Total Bilirubin 2.4 H (0.0-1.0) mg/dL AST 21 (5-37) U/L ALT 30 (0-40) U/L Alkaline Phosphatase 76 (39-117) U/L Troponin I High Sens < 3.5 (<3.5-35.0) ng/L Total Protein 8.3 H (6.5-8.0) g/dL Albumin 5.0 (3.5-5.0) g/dL TSH 1.10 (0.32-4.0) uIU/mL 11/19/21 Range/Units 19:34 WBC (4.8-10.8) X10*3/uL RBC (4.60-5.80) X10*6/uL Hgb (14.0-18.0) g/dl Hct (42.0-52.0) % MCV (80.0-98.0) fL MCH (27.0-33.0) pg MCHC (31.0-36.0) g/dl RDW (11.0-16.0) % Plt Count (160-400) X10*3/uL MPV (9.4-12.4) fL Immature Gran % (Auto) (0.0-0.4) % Neut % (Auto) (45-73) % Lymph % (Auto) (20-40) % [place] % (Auto) (2-11) % Eos % (Auto) (0-4) % Baso % (Auto) (0-2) % Lymph # (Auto) (1.2-4.9) X10*3/uL [place] # (Auto) (0.1-1.2) X10*3/uL Eos # (Auto) (0.0-0.4) X10*3/uL Baso # (Auto) (0.0-0.2) X10*3/uL Abs Immat Gran (auto) (0.00-0.03) X10*3/uL Absolute Neuts (auto) (2.0-8.3) x10*3/uL Absolute Nucleated RBC (0.0-0.012) X10*3/uL Nucleated RBC % (auto) (0.0-0.2) /100WBC Sodium 143 (135-145) mmol/L Potassium 4.8 (3.3-5.1) mmol/L Chloride 108 (96-108) mmol/L Carbon Dioxide 24 (22-29) mmol/L Anion Gap 16 (12-20) BUN 9 (9-16) mg/dL Creatinine 0.76 (0.5-1.4) mg/dL Estim Creat Clear Calc 148.7 Estimated GFR > 60 Random Glucose 87 (60-115) mg/dL Calcium 9.3 D (8.4-10.2) mg/dL Magnesium (1.6-2.6) mg/dL Total Bilirubin (0.0-1.0) mg/dL AST (5-37) U/L ALT (0-40) U/L Alkaline Phosphatase (39-117) U/L Troponin I High Sens (<3.5-35.0) ng/L Total Protein (6.5-8.0) g/dL Albumin (3.5-5.0) g/dL TSH (0.32-4.0) uIU/mL ECG Data Attestation: I personally reviewed and interpreted this ECG as follows: Prior ECG tracings: not available for review Interpretation: NSR, HR-79, no STEMI, IA/QRS/QTC are within normal limits. There are noted isolated T-wave inversions in lead 3 Discharge Plan Discharge Clinical Impression: Palpitations, Anxiety, Hyperkalemia Patient Disposition: Home, Self-Care Instructions: Anxiety (ED), Heart Palpitations (ED), Hyperkalemia (ED), Potassium Content of Foods List (ED) Additional Instructions: Follow-up with your primary care provider and continue to drink plenty of fluids, especially water. Return to the ER for worsening symptoms. Prescriptions: No Action dicyclomine 20 mg tablet 20 mg PO TID PRN (Reason: abdominal discomfort) Qty: 30 0RF naproxen 500 mg tablet 500 mg PO BID PRN (Reason: pain) Qty: 14 0RF cyclobenzaprine 10 mg tablet 10 mg PO BID PRN (Reason: muscle spasm) 7 Days Qty: 14 0RF
[2021-11-19 18:47] LABS: Magnesium 1.9 mg/dL (1.6-2.6)
[2021-11-19 20:06] LABS: Anion Gap 16 (12-20); Blood Urea Nitrogen 9 mg/dL (9-16); Calcium 9.3 mg/dL (8.4-10.2); Carbon Dioxide 24 mmol/L (22-29); Chloride 108 mmol/L (96-108); Creatinine Clr Calc Pharmacy 148.7; Estimated Glomerular Filt Rate > 60; Glucose Random 87 mg/dL (60-115); Potassium 4.8 mmol/L (3.3-5.1); Sodium 143 mmol/L (135-145)
[2021-11-19 20:21] VITALS: BP 109/58; PULSE 76; TEMP 37.2; O2SAT 98
== END 2021-11-19 20:52 | disposition home or self-care (01) ==
PROVIDERS: Emergency Provider Student in an Organized Health Care Education/Training Program
DX: R00.2 Palpitations (principal); F41.9 Anxiety disorder, unspecified; F12.90 Cannabis use, unspecified, uncomplicated; E87.5 Hyperkalemia
CPT/HCPCS: 36415; 80048; 80053; 83735; 84443; 84484; 85025; 93005; 99283; 99284